=== PATIENT | male | born 1985 | race Caucasian/White ===

== ENCOUNTER 2018-01-29 15:38 | Emergency (ER) | payer OTHER ==
[~2018-01-29] VITALS: Ht 177.8 cm; Wt 106.6 kg
--- NOTE | 2018-01-29 16:40 | Diagnostic Imaging Report ---
CT BRAIN [facility] HISTORY: Trauma COMPARISON: None. TECHNIQUE: Noncontrast axial scans were obtained from skull base to the vertex. Coronal and sagittal reconstructions obtained from the axial data. One or more of the following dose reduction techniques were used: Automated exposure control, adjustment of the mA and/or kV according to patient size, and/or utilization of iterative reconstruction technique. DISCUSSION: Scalp/Skull: Unremarkable. Brain sulci: Appropriate for patient's age. Ventricles: Normal in size and configuration. No hydrocephalus. Extra-axial spaces: No masses or fluid collections. Parenchyma: No abnormal densities. No masses, hemorrhage, or large vascular territory acute infarct. Dural sinuses: No abnormal densities. Sellar/Suprasellar region: Intact. Skull base: Intact. Incidental findings: None. IMPRESSION: No intracranial abnormalities. Signed by: Dr. Jose Dangelo M.D. on 01/29/2018 4:36 PM
[2018-01-29] MEDS ORDERED: SODIUM CHLORIDE 0.9% 1000 ML BAG IV ONE (17:00)
== END 2018-01-29 18:50 | disposition home or self-care (01) ==
LOC: FSED 15:38
DX: S06.0X0A Concussion without loss of consciousness, initial encounter (principal); T79.6XXA Traumatic ischemia of muscle, initial encounter; W01.198A Fall on same level from slipping, tripping and stumbling with subsequent striking against other object, initial encounter; Y92.009 Unspecified place in unspecified non-institutional (private) residence as the place of occurrence of the external cause; Z88.0 Allergy status to penicillin
CPT/HCPCS: 70450; 80053; 81003; 82553; 84484; 85025; 99284; J7030